=== PATIENT | female | born 1975 | race Native Hawaiian/Other Pacific Islander ===

== ENCOUNTER 2018-12-14 00:01 | Emergency (ER) | payer OTHER ==
[~2018-12-14] VITALS: Ht 170.2 cm; Wt 142.5 kg
[2018-12-14 00:01] VITALS: BP 106/70; TEMP 97.3
[~2018-12-14 00:01] MED LIST: ALBUSOL IN; CLON0.5T36 PO; DIVA250T2 PO; DIVA500T2 PO; EMOLOIN22 TOP; FAMOTIDINE40 MG PO; FLAX SEED OIL PO; FLUP25IN8 IM; FLUPHENAZINE5 MG PO; FLUT110A2 IN; GABA300C2 PO; HYDR25CA25 PO; KP FOLIC ACID1 MG PO; LEXAPRO20 MG PO; LISI20TA11 PO; MELATONIN TR10 MG PO; METAMUCIL0.52 GM PO; MILK OF MAGNESI1 SU1 PO; MIRALAX3350 N1 PO; MULT VITAMI1 PO; MYLANT3 PO; OLANZAPINE10 MG PO; OLOP0.1S IO; PANTOPRAZOLE 40MG TA PO; SPIRIVA IN; TOPAMAX50 MG OR; TRAMADOL HCL100 MG PO; TYLENOL325 MG PO; VALTREX1 GM PO; VITAMIN B-121000 MC2 PO
[2018-12-14 00:39] LABS: PLATELET COUNT 211 K/uL (152-353)
[2018-12-14 00:51] LABS: POTASSIUM 4.2 mmol/L (3.6-5.2)
[2018-12-14] MEDS ORDERED: VITAMIN D31000 UNI1 PO (03:12)
[2018-12-14] MEDS ORDERED: ERYTHROMYCIN 2% EX (03:15)
[2018-12-14] MEDS ORDERED: DIVALPROEX250 M1 PO (03:16)
[2018-12-14] MEDS ORDERED: BISCOLAX10 MG RE (03:17)
[2018-12-14] MEDS ORDERED: FLEET ENEMA RE (03:18)
[2018-12-14] MEDS ORDERED: LISI10TA11 PO (03:19)
[2018-12-14] MEDS ORDERED: [UNRECOGNIZED DRUG - OTHER] PO (03:20)
[2018-12-14] MEDS ORDERED: NITROSTAT0.4 MG SL (03:23)
[2018-12-14] MEDS ORDERED: TYLENOL325 MG PO ×2 (03:24→03:25)
[2018-12-14] MEDS ORDERED: MILK OF MAGNESI1 SU1 PO (03:30)
[2018-12-14] MEDS ORDERED: FLOVENT HF110 MCG/AC INH (03:37)
[2018-12-14] MEDS ORDERED: LATANOPROST0.005 % OPTH (03:40)
[2018-12-14] MEDS ORDERED: FERROUS SULF325 M1 PO (03:41)
[2018-12-14] MEDS ORDERED: VITAMIN D50000 UNIT PO (03:43)
[2018-12-14] MEDS ORDERED: CLOPIDOGREL75 MG PO (03:44)
[2018-12-14] MEDS ORDERED: ASPIRIN 81 LOW81 MG PO (03:45)
[2018-12-14] MEDS ORDERED: LIPITOR40 MG PO (03:47)
[2018-12-14] MEDS ORDERED: BISOPROL FUM5 MG PO (03:48)
[2018-12-14] MEDS ORDERED: DOXEPIN HCL10 MG PO (03:49)
[2018-12-14] MEDS ORDERED: HYDR-3182 PO (03:49)
[2018-12-14] MEDS ORDERED: BUPROPION HYDR150 M1 PO (03:51)
== END 2018-12-14 01:45 | disposition other institution (70) ==
LOC: ED 00:07
PROVIDERS: Emergency Medicine
DX: F29 Unspecified psychosis not due to a substance or known physiological condition (principal); I48.92 Unspecified atrial flutter; Z04.6 Encounter for general psychiatric examination, requested by authority
CPT/HCPCS: 36415; 80053; 81000; 85027; 93005; 99285

== ENCOUNTER 2021-04-08 16:59 | Emergency (ER) | payer OTHER ==
[~2021-04-08] VITALS: Ht 170.2 cm; Wt 142.9 kg
[~2021-04-08 16:59] MED LIST changes: +ASPIRIN 81 LOW81 MG PO; +BISCOLAX10 MG RE; +BISOPROL FUM5 MG PO; +BUPROPION HYDR150 M1 PO; +CLOPIDOGREL75 MG PO; +DICL1GEL2 TOP; +DIVALPROEX250 M1 PO; +DOXEPIN HCL10 MG PO; +ERYTHROMYCIN 2% EX; +FERROUS SULF325 M1 PO; +FLEET ENEMA RE; +FLOVENT HF110 MCG/AC INH; +FLUP10TA3 PO; +HYDR-3182 PO; +LATANOPROST0.005 % OPTH; +LIPITOR40 MG PO; +LISI10TA11 PO; +NITROSTAT0.4 MG SL; +OXCARBAZEPIN300 MG PO; +TRAMADOL HYDROC50 MG PO; +VITAMIN D31000 UNI1 PO; +VITAMIN D50000 UNIT PO; +[UNRECOGNIZED DRUG - OTHER] PO
[2021-04-08 17:00] VITALS: BP 113/63; TEMP 97.8
[2021-04-08 17:43] LABS: PLATELET COUNT 264 K/uL (152-353)
[2021-04-08 17:48] LABS: POTASSIUM 4.8 mmol/L (3.6-5.2)
[2021-04-08] MEDS ORDERED: ASPIR-8181 MG PO (21:16)
[2021-04-08] MEDS ORDERED: BISOPROL FUM5 MG PO (21:17)
[2021-04-08] MEDS ORDERED: LIPITOR40 MG PO (21:17)
[2021-04-08] MEDS ORDERED: ALLERGY RELIEF10 M3 PO (21:18)
[2021-04-08] MEDS ORDERED: DAILY VIT PO (21:19)
[2021-04-08] MEDS ORDERED: CLOP75TA2 PO (21:19)
[2021-04-08] MEDS ORDERED: DIVALPROEX SOD DR PO (21:20)
[2021-04-08] MEDS ORDERED: DIVALPROEX SOD PO (21:22)
[2021-04-08] MEDS ORDERED: EQL IRON SUPPL325 M1 PO (21:24)
[2021-04-08] MEDS ORDERED: KP FOLIC ACID1 MG PO (21:26)
[2021-04-08] MEDS ORDERED: FLUP25IN8 IM (21:26)
[2021-04-08] MEDS ORDERED: LEXAPRO20 MG PO (21:27)
[2021-04-08] MEDS ORDERED: SOLI10TAB PO (21:28)
[2021-04-08] MEDS ORDERED: LISI10TA11 PO (21:28)
[2021-04-08] MEDS ORDERED: SPIRIVA HANDIH18 MCG INH (21:29)
[2021-04-08] MEDS ORDERED: VALACYCLOVIR HYD1 GM PO (21:30)
[2021-04-08] MEDS ORDERED: VISINE OPTH (21:31)
[2021-04-08] MEDS ORDERED: LUMIGAN0.01 % OPTH (21:32)
[2021-04-08] MEDS ORDERED: MELATONIN5 M2 PO (21:33)
[2021-04-08] MEDS ORDERED: MAG OXIDE400 MG PO (21:33)
[2021-04-08] MEDS ORDERED: VITAMIN D31000 UNI4 PO (21:34)
[2021-04-08] MEDS ORDERED: PANTOPRAZOLE SO40 M1 PO (21:34)
[2021-04-08] MEDS ORDERED: VITAMIN D PO (21:37)
[2021-04-08] MEDS ORDERED: ZINC SULFATE220 M1 PO (21:38)
[2021-04-08] MEDS ORDERED: BUPROPION HYDR PO (21:39)
[2021-04-08] MEDS ORDERED: FLOVENT HF110 MCG/AC INH (21:40)
[2021-04-08] MEDS ORDERED: LYRICA50 MG PO (21:40)
[2021-04-08] MEDS ORDERED: MIRALAX17 GM/SCOO PO (21:41)
[2021-04-08] MEDS ORDERED: HYDR50CA21 PO (21:42)
[2021-04-08] MEDS ORDERED: ACETAMINOPHEN PO (21:43)
[2021-04-08] MEDS ORDERED: BISACODYL LAXAT10 MG RE (21:45)
[2021-04-08] MEDS ORDERED: ENEMA RE (21:46)
[2021-04-08] MEDS ORDERED: MILK OF MA400 MG/5 M PO (21:49)
[2021-04-08] MEDS ORDERED: NITR0.4S2 SL (21:50)
[2021-04-08] MEDS ORDERED: PREPARATIO1 RE (21:52)
[2021-04-08] MEDS ORDERED: TRAMADOL HYDROC50 MG PO (21:54)
== END 2021-04-08 19:30 | disposition other institution (70) ==
LOC: ED 16:59
PROVIDERS: Family Medicine
DX: R46.89 Other symptoms and signs involving appearance and behavior (principal); I10 Essential (primary) hypertension; Z11.52 Encounter for screening for COVID-19; Z04.6 Encounter for general psychiatric examination, requested by authority; F17.210 Nicotine dependence, cigarettes, uncomplicated
CPT/HCPCS: 80053; 80307; 81000; 85027; 87635; 93005; 99283; U0003

== ENCOUNTER 2021-07-14 20:44 | Emergency (ER) | payer OTHER ==
[~2021-07-14] VITALS: Ht 162.6 cm; Wt 153.3 kg
[2021-07-14 20:44] VITALS: BP 108/64; TEMP 98.1
[~2021-07-14 20:44] MED LIST changes: +ACETAMINOPHEN PO; +ALLERGY RELIEF10 M3 PO; +ASPIR-8181 MG PO; +BISACODYL LAXAT10 MG RE; +BUPROPION HYDR PO; +BUSP5TAB2 PO; +CHOL100034 PO; +CITA20TA2 PO; +CLOP75TA2 PO; +DAILY VIT PO; +DIVA250T PO; +DIVALPROEX SOD DR PO; +DIVALPROEX SOD PO; +DIVALPROEX500 MG PO; +ENEMA RE; +EQL IRON SUPPL325 M1 PO; +HYDR50CA21 PO; +LUMIGAN0.01 % OPTH; +LYRICA50 MG PO; +MAG OXIDE400 MG PO; +MELATONIN5 M2 PO; +MILK OF MA400 MG/5 M PO; +MIRALAX17 GM/SCOO PO; +NITR0.4S2 SL; +PANTOPRAZOLE SO40 M1 PO; +PREPARATIO1 RE; +SOLI10TAB PO; +SPIRIVA HANDIH18 MCG INH; +VALACYCLOVIR HYD1 GM PO; +VISINE OPTH; +VITAMIN D PO; +VITAMIN D31000 UNI4 PO; +ZINC SULFATE220 M1 PO
[2021-07-14 21:17] LABS: PLATELET COUNT 230 K/uL (152-353)
[2021-07-14 21:25] LABS: POTASSIUM 4.6 mmol/L (3.6-5.2)
[2021-07-14] MEDS ORDERED: I-VITE PO (22:44)
[2021-07-14] MEDS ORDERED: DIVA500T2 PO (23:07)
[2021-07-14] MEDS ORDERED: BUSPIRONE HYDRO15 MG PO (23:32)
[2021-07-14] MEDS ORDERED: TRIA0.1C5 TOP (23:34)
[2021-07-14] MEDS ORDERED: TYLENOL325 MG PO (23:42)
[2021-07-14] MEDS ORDERED: IBUPROFEN 200200 MG PO (23:44)
== END 2021-07-14 21:45 | disposition still patient (30) ==
LOC: ED 20:44
PROVIDERS: Hospitalist
DX: F25.8 Other schizoaffective disorders (principal); R46.89 Other symptoms and signs involving appearance and behavior; Z11.52 Encounter for screening for COVID-19; Z04.6 Encounter for general psychiatric examination, requested by authority
CPT/HCPCS: 36415; 80053; 80164; 81000; 85027; 87635; 93005; 99283; U0003